=== PATIENT | female | born 1960 | race Caucasian/White ===

== ENCOUNTER → 2016-04-02 | Outpatient (CLI) | payer OTHER ==
[2016-04-02 10:53] LABS: MEAN CORPUSCULAR HGB CONC 35.2 g/dL (31.0-37.0); MEAN PLATELET VOLUME 8.5 FL (6.0-9.5); WHITE BLOOD COUNT 6.51 10^3uL (4.0-11.0)
[2016-04-02 10:54] LABS: MEAN CORPUSCULAR HEMOGLOBIN 33.2 PG (26.0-34.0)
[2016-04-02 11:27] LABS: ALBUMIN 4.6 g/dL (3.4-5.0); CALCULATED IONIZED CALCIUM 4.2 mg/dL (3.8-4.6); TOTAL PROTEIN 7.7 g/dL (6.4-8.5)
== END ==
LOC: LAB 10:44
DX: I10 Essential (primary) hypertension (principal)
CPT/HCPCS: 36415; 80053; 80061; 84443; 85027